=== PATIENT | male | born 1965 | race Caucasian/White ===

== ENCOUNTER 2018-07-19 11:30 | Inpatient (IN) | payer OTHER ==
[~2018-07-19] VITALS: Ht 157.5 cm; Wt 71.7 kg
[2018-07-19] MEDS ORDERED: FINASTERIDE5 MG PO (13:44)
[2018-07-31] MEDS ORDERED: MIRALAX17 GM PO (05:06)
[2018-07-31] MEDS ORDERED: NEURONTIN300 MG PO (05:06)
[2018-07-31] MEDS ORDERED: ULTRACET PO (05:06)
[2018-08-01] MEDS ORDERED: INTESTINEX680 M1 PO (09:32)
[2018-08-01] MEDS ORDERED: AMOX-CLAV 875-1 EACH PO (09:32)
[2018-08-01] MEDS ORDERED: PROSCAR5 MG PO (09:33)
== END 2018-08-01 10:20 | disposition home or self-care (01) | DRG 337 ==
LOC: SURH 07-25 11:30 → O/R 07-27 05:10 → SURH 07-27 05:10
PROVIDERS: Surgery
PROC: 0DNE0ZZ Release Large Intestine, Open Approach (ICD-10-PCS; 2018-07-27)
PROC: 0DN80ZZ Release Small Intestine, Open Approach (ICD-10-PCS; 2018-07-27)
PROC: 0JX80ZZ Transfer Abdomen Subcutaneous Tissue and Fascia, Open Approach (ICD-10-PCS; 2018-07-27)
PROC: 0WUF0JZ Supplement Abdominal Wall with Synthetic Substitute, Open Approach (ICD-10-PCS; principal; 2018-07-27 07:00)
PROC: 4A12X4Z Monitoring of Cardiac Electrical Activity, External Approach (ICD-10-PCS; 2018-07-30)
DX: K43.0 Incisional hernia with obstruction, without gangrene (principal); K42.0 Umbilical hernia with obstruction, without gangrene; K66.0 Peritoneal adhesions (postprocedural) (postinfection)